=== PATIENT | female | born 1930 | race Caucasian/White ===

== ENCOUNTER 2017-12-21 15:04 | Day surgery (SDC) | payer MEDICARE ==
[2017-12-20 17:38] VITALS: BMI 25.9
[~2017-12-21 15:04] MED LIST: Dexamethasone 20 MG/5 ML VIAL ONE; Ondansetron HCl/PF 4 MG/2 ML Vial ONE; PROPOFOL 200 MG/20 ML VIAL ONE
[2017-12-21 17:39] LABS: #Basophils 0.1 thou/uL (0.0-0.2); #Eosinphils 0.6 thou/uL (0.0-0.7); #Lymphocytes 1.7 thou/uL (1.20-3.40); #Monocytes 0.6 thou/uL (0.11-0.59); #Neutrophils 4.5 thou/uL (1.40-6.50); %Basophils 0.9 % (0.0-1.0); %Eosinophils 8.3 % (0.0-10.0); %Lymphocytes 22.7 % (21.0-51.0); %Monocytes 8.2 % (0.0-10.0); %Neutrophils 59.9 % (42.0-75.0); Hemoglobin 10.3 g/dL (12.0-16.0); Mean Corpuscular HGB CONC 33.2 g/dL (32.0-36.0); Mean Corpuscular Hemoglobin 31.5 pg (27.0-31.0); Mean Corpuscular Volume 94.8 fl (81.0-99.0); Mean Platelet Volume 7.6 fL (7.4-10.4); Platelet Count 198 thou/uL (130-400); RBC Distribution Width 12.7 % (11.5-14.5); Red Blood Cell (RBC) Count 3.28 mill/uL (4.20-5.40); White Blood Cell (WBC) Count 7.5 thou/uL (4.8-10.8)
[2017-12-21] MEDS ORDERED: Scopolamine 1.5 mg/72 hour Patch ONE (17:44)
[2017-12-21 17:45] LABS: Bilirubin Negative (Negative); Blood, Urine Small (Negative); Clarity CLEAR (Clear); Glucose, Urine (Dipstick) Negative (Negative); Leukocyte Negative (Negative); Nitrite Negative (Negative); Protein, Urine (Dipstick) 300 mg/dL (Neg-Trace); Specific Gravity, Urine 1.014 (1.002-1.036); Urobilinogen 0.2 mg/dL (0.2-1.0)
[2017-12-21 17:46] LABS: Bacteria/HPF None Seen HPF (None Seen); Hyaline Casts/LPF 0-3 HYALINE CAST LPF (0-3 Hyaline); Pathc Cast-AUWi Flag 0.29 (0-2.49); RBC/HPF 0-3 HPF (0-3); Squamous Epithelial None Seen HPF (0-3); WBC/HPF 0-3 HPF (0-3)
[2017-12-21 17:58] LABS: Anion Gap 14 mmol/L (10-20); BUN (Urea Nitrogen) 56 mg/dL (9.8-20.1); Calc. Creatinine Clearance 14 mL/min (70-130); Calcium 9.5 mg/dL (7.8-10.44); Carbon Dioxide 15 mmol/L (23-31); Chloride 115 mmol/L (98-107); Estimated GFR-MDRD 12; Glucose 119 mg/dL (83-110); Potassium 5.1 mmol/L (3.5-5.1); Sodium 139 mmol/L (136-145)
[2017-12-21] MEDS ORDERED: Bupivacaine PF 0.5% 30 ML VIAL ONE (18:26)
[2017-12-21] MEDS ORDERED: CEFAZOLIN/Water 2 GM/20 ML SYRINGE ONE (18:30)
--- NOTE | 2017-12-21 18:34 | RAD ---
FRONTAL VIEW CHEST: INDICATIONS: Preoperative evaluation. FINDINGS: There is no lobar consolidation, effusion, or discrete pneumothorax. Prior sternotomy. 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 IMPRESSION: 1. No focal consolidation. 2. Additional details are as described above. POS: [facility]
[2017-12-21] MEDS ORDERED: HYDROmorphone 0.5 MG/0.5 ML SYRINGE ONE (18:38)
[2017-12-21] MEDS ORDERED: Bacitracin Zinc Ointment 30 gm TUBE ONE (19:31)
--- NOTE | 2017-12-22 09:01 | RAD ---
INTRAOPERATIVE FLUOROSCOPY: HISTORY: Thickening of the index finger. COMPARISON: None. FINDINGS: Intraoperative fluoroscopy was provided for Dr. Bender. A total of 3 fluoroscopic views demonstrat e a single pin traversing the distal aspect of the index finger. EXPOSURE: 27.3 seconds. 0.67 mGy. IMPRESSION: Fluoroscopy as above. POS: [facility]
--- NOTE | 2017-12-24 17:08 | EKG ---
Test Reason : Blood Pressure : / mmHG Vent. Rate : 057 BPM Atrial Rate : 057 BPM P-R Int : 150 ms QRS Dur : 098 ms QT Int : 432 ms P-R-T Axes : 064 080 021 degrees QTc Int : 420 ms Sinus bradycardia Otherwise normal ECG No previous ECGs available Confirmed by LUBA RICO, DR. Garza ([id number]) on 12/24/2017 5:08:31 PM Referred By: LISA Confirmed By:DR. Greg VERDUZOC MD
--- NOTE | 2017-12-25 10:20 | OP ---
DATE OF SURGERY: 12/21/2017 PREOPERATIVE DIAGNOSES: 1. Open distal phalanx fracture, left index finger. 2. Nail bed laceration. PROCEDURE PERFORMED: 1. Debridement of bone, open fracture and material associated open fracture, distal phalanx, left in dex. 2. Debridement of open wound. 3. ORIF distal phalanx fracture using K-wires. 4. C-arm supervision. 5. Nail bed repair with allograft. 6. Debridement techniques: A. Excisional. B. Use of Guthrie blade, 11 blade knife, tenotomy scissors pickups, curette, and Larimore along with irr igation with 2 liters normal saline and Pulsavac pressure. ESTIMATED BLOOD LOSS: 10 mL. ANESTHESIA: General LMA technique augmented by 20 mL of index finger left metacarpophalangeal joint level block. DESCRIPTION OF PROCEDURE: After successful general endotracheal anesthesia, the patient's limb prepp ed and draped. Timeout was done appropriately. Limb was exsanguinated, tourniquet inflated to 250 m mHg pressure. We then began, what the patient had is a 5-6 mm wound, open the wound debrided using t echnique listed above, visualized the bone, distal phalanx due to nail bed defect and irrigated, debr ided the wound and used curette. We then 2 liters normal saline irrigation, we deflated the to urniquet, and use K-wire, 0.35 to reduce the distal phalanx fracture which is only approximately 5 mm in size at the distal tip. Then, we visualized the nail bed area finishes debridement, trimmed exce ss area, and then closed it with an interrupted 6-0 chromic. Nail bed repair was completed and the C-arm confirmed the position, we then cut the K-wire underneath the skin. We repaired the soft tissue laceration 6 mm with a 5-0 nylon interrupted simple pattern. Bulky dressing was applied and the patient left the operating room without evidence of anesthetic or operative complication.
== END 2017-12-21 21:15 | disposition home or self-care (01) ==
LOC: SDC 15:04
PROVIDERS: ATTEND Orthopaedic Surgery Hand Surgery
PROC: 0PSV04Z Reposition Left Finger Phalanx with Internal Fixation Device, Open Approach (ICD-10-PCS; principal; 2017-12-21)
PROC: 0HRQX7Z Replacement of Finger Nail with Autologous Tissue Substitute, External Approach (ICD-10-PCS; 2017-12-21)
DX: S62.661B Nondisplaced fracture of distal phalanx of left index finger, initial encounter for open fracture (principal); I25.10 Atherosclerotic heart disease of native coronary artery without angina pectoris; E78.00 Pure hypercholesterolemia, unspecified; E03.9 Hypothyroidism, unspecified; I12.9 Hypertensive chronic kidney disease with stage 1 through stage 4 chronic kidney disease, or unspecified chronic kidney disease; E11.22 Type 2 diabetes mellitus with diabetic chronic kidney disease; N18.9 Chronic kidney disease, unspecified; Z87.891 Personal history of nicotine dependence; Z79.01 Long term (current) use of anticoagulants; Z79.1 Long term (current) use of non-steroidal anti-inflammatories (NSAID); Z79.899 Other long term (current) drug therapy; Z88.5 Allergy status to narcotic agent; Z95.1 Presence of aortocoronary bypass graft; W23.0XXA Caught, crushed, jammed, or pinched between moving objects, initial encounter
CPT/HCPCS: 36415; 71045; 76000; 80048; 81001; 85025; 93005; 93010; J1100; J1170; J2405; J2704; S0020